=== PATIENT | male | born 1995 | race Caucasian/White ===

== ENCOUNTER 2021-06-01 09:11 | Emergency (ER) | payer OTHER ==
[~2021-06-01] VITALS: Ht 172.7 cm; Wt 99.8 kg
[2021-06-01] MEDS ORDERED: TRAZADONE PO (09:36)
[2021-06-01] MEDS ORDERED: WELLBUTRIN XL300 MG PO (09:36)
[2021-06-01 10:18] VITALS: BP 133/86
== END 2021-06-01 10:19 | disposition home or self-care (01) ==
LOC: M.ERS 09:11
DX: R19.7 Diarrhea, unspecified (principal); Z20.822 Contact with and (suspected) exposure to COVID-19; R51.9 Headache, unspecified; F17.210 Nicotine dependence, cigarettes, uncomplicated